=== PATIENT | male | born 1980 | race Caucasian/White ===

== ENCOUNTER 2021-04-16 16:11 | Emergency (ER) | payer OTHER, SELFPAY ==
[2021-04-16 16:15] VITALS: BP 133/71; PULSE 83; RESP 18; TEMP 37.2; O2SAT 97; BMI 24.3
[2021-04-16 16:45] LABS: Add Manual Diff / Slide Review NO; Basophils Absolute Auto 100 /uL (0-100); Basophils Percent Auto 0.6 % (0-2); Eosinophils Absolute Auto 100 /uL (0-450); Eosinophils Percent Auto 1.5 % (2-4); Hematocrit 45.8 % (41-53); Hemoglobin 15.8 g/dL (13.5-17.5); Lymphocytes Absolute Auto 1700 /uL (1100-4500); Lymphocytes Percent Auto 16.5 % (25-40); Mean Corpuscular HGB Conc 34.4 % (30-36); Mean Corpuscular Hemoglobin 30.9 PG (26-34); Mean Corpuscular Volume 89.8 fL (80-100); Monocytes Absolute Auto 400 /uL (0-900); Monocytes Percent Auto 3.9 % (3-14); Neutrophils Absolute Auto 7800 /uL (1500-7000); Neutrophils Percent Auto 77.5 % (50-75); Platelet Count 201 X10^3/uL (150-400); Red Cell Distribution Width 13.2 % (11.6-14.8); White Blood Cell Count 10.1 X10^3/uL (4.5-11.0)
[2021-04-16 16:58] LABS: Alanine Aminotransferase 20 IU/L (<50); Albumin 4.2 g/dL (3.5-5.0); Albumin Globulin Ratio 1.5 (1.0-2.8); Alkaline Phosphatase 41 U/L (38-126); Aspartate Aminotransferase 26 IU/L (17-59); BUN Creatinine Ratio 16.5 (6-22); Bilirubin Total 1.4 mg/dL (0.2-1.3); Blood Urea Nitrogen 15 mg/dL (9-20); Calcium 9.2 mg/dL (8.4-10.2); Carbon Dioxide 24 mmol/L (22-32); Chloride 105 mmol/L (98-107); Estimated Glomerular Filt Rate > 60.0 mL/min (>60); Globulin 2.8 g/dL (1.7-4.1); Glucose 132 mg/dL (70-100); HEMOLYSIS < 15 (0-50); Sodium 137 mmol/L (137-145)
[2021-04-16] MEDS: diphenhydrAMINE 50 MG/ML VIAL IV (17:00)
[2021-04-16] MEDS: methylPREDNISolone 125 MG/2 ML VIAL IV (17:00)
[2021-04-16] MEDS: FAMOTIDINE 20 MG/2 ML VIAL IV (17:00)
--- NOTE | 2021-04-16 18:35 | ED_ITS ---
HPI - Skin/Abscess/Foreign Bdy General Chief complaint: Skin/Abscess/Foreign Body Stated complaint: bee stings, multiple epi pen inj, rash Time Seen by Provider: 04/16/21 16:36 Source: patient Mode of arrival: Ambulatory Limitations: no limitations History of Present Illness HPI narrative: Patient is a 40-year-old male. Yesterday he started noticing some redness and swelling around his right elbow. He denies any specific trauma to the area. Who fevers. Did have some warmth could touch. He states that since that time the redness has actually worsened. He does not have any discomfort with bending his elbow. And discussed this yesterday he was stung multiple times by a bee. 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 Had an EpiPen with him and did administer 2 doses to himself. He was seen by the EMS crew locally and observed him for several hours but he was never transported to the emergency department. He denies any shortness of breath. He states that. Today he did notice a rash on his lower extremities. He did receive Solu-Medrol and Benadryl prior to my evaluation. Related Data Previous Rx's Medication Instructions Recorded clindamycin HCl 300 mg capsule 600 mg PO TID 14 Days #84 cap 04/16/21 epinephrine 0.3 mg/0.3 mL 0.3 mg IM Q5-15M PRN #2 ea 04/16/21 injection, auto-injector (EpiPen 2-Jose Daniel) prednisone 20 mg tablet 40 mg PO DAILY 5 Days #10 tab 04/16/21 Allergies Allergy/AdvReac Type Severity Reaction Status Date / Time bee venom protein (honey bee) Allergy Verified 04/16/21 18:52 Sulfa (Sulfonamide Allergy Verified 04/16/21 17:02 Antibiotics) Review of Systems Constitutional Constitutional: Denies fever(s) Eyes Eyes: Reports system reviewed and no additional complaints, except as documented ENT Ears, Nose, Mouth, and Throat: Denies sore throat, Denies throat swelling and Denies tongue swelling Cardiovascular Cardiovascular: Denies chest pain and Denies dyspnea Respiratory Respiratory: Denies cough and Denies dyspnea Gastrointestinal Gastrointestinal: Denies nausea and Denies vomiting Musculoskeletal Musculoskeletal: Reports system reviewed and no additional complaints, except as documented Integumentary/Breasts Skin/Breast: Reports erythema and Reports rash Neurologic Neurologic: Reports system reviewed and no additional complaints, except as documented Psychiatric Psychiatric: Reports system reviewed and no additional complaints, except as documented Hematologic/Lymphatic On Anticoagulants: No Allergic/Immunologic Allergic/Immunologic: Denies throat swelling and Denies tongue swelling Patient History Medical History Bee sting allergy Social History Smoking Status: Never smoker Smoking Status: Never smoker Substance Use Type: does not use Exam Initial Vital Signs Initial Vital Signs: Vital Signs Temperature 99.0 F 04/16/21 16:15 Pulse Rate 83 04/16/21 16:15 Respiratory Rate 18 04/16/21 16:15 Blood Pressure 133/71 04/16/21 16:15 Pulse Oximetry 97 04/16/21 16:15 Const General: cooperative, comfortable and well developed HENMT Head: normal to inspection and normocephalic Eyes General: appearance normal, both eyes and all related structures Neck Neck: normal visual inspection Resp Effort & Inspection: normal respiratory effort Auscultation: clear to auscultation bilaterally Cardio Rate: regular rate Rhythm: regular rhythm GI Inspection: normal to inspection Skin Other: He does have an area of redness located over his right elbow. It is warm to the touch. There is no fluctuance underneath. He also has diffuse urticaria. Neuro General: patient alert, patient awake, patient oriented x3 and moves all extremities Extrem General: normal to inspection and capillary refill normal Psych Appearance: grossly normal and well kempt Course Orders Ordered: Discontinued Medications Clindamycin HCl (Clindamycin 150 Mg Capsule) 300 mg PO NOW ONE Stop: 04/16/21 18:36 Clindamycin HCl (Clindamycin 150 Mg Capsule) 600 mg PO NOW ONE Stop: 04/16/21 18:39 Last Admin: 04/16/21 19:02 Dose: 600 mg Documented by: ARIANNA Diphenhydramine HCl (Diphenhydramine 50 Mg/Ml Vial) 50 mg IV NOW ONE Stop: 04/16/21 16:38 Last Admin: 04/16/21 17:00 Dose: 50 mg Documented by: ARIANNA Famotidine (Famotidine 20 Mg/2 Ml Vial) 20 mg IV NOW ONE Stop: 04/16/21 16:38 Last Admin: 04/16/21 17:00 Dose: 20 mg Documented by: JENNIFERR Methylprednisolone (Methylprednisolone 125 Mg/2 Ml Vial) 125 mg IV NOW ONE Stop: 04/16/21 16:38 Last Admin: 04/16/21 17:00 Dose: 125 mg Documented by: ARIANNA Vital Signs Vital signs: Vital Signs - 8 hr 04/16/21 16:15 Temperature 99.0 F Pulse Rate 83 Respiratory Rate 18 Blood Pressure 133/71 Pulse Oximetry 97 MDM - Skin/Abscess/Foreign Bdy Lab Data Attestation: I reviewed the patient's lab results. Result diagrams: 04/16/21 16:35 04/16/21 16:35 Labs: Lab Results 04/16/21 04/16/21 Range/Units 16:35 16:35 WBC 10.1 (4.5-11.0) X10^3/uL RBC 5.10 (4.5-5.9) X10^6/uL Hgb 15.8 (13.5-17.5) g/dL Hct 45.8 (41-53) % MCV 89.8 (80-100) fL MCH 30.9 (26-34) PG MCHC 34.4 (30-36) % RDW 13.2 (11.6-14.8) % Plt Count 201 (150-400) X10^3/uL Neut % (Auto) 77.5 H (50-75) % Lymph % (Auto) 16.5 L (25-40) % [place] % (Auto) 3.9 (3-14) % Eos % (Auto) 1.5 L (2-4) % Baso % (Auto) 0.6 (0-2) % Neut # (Auto) 7800 H (8304-0787) /uL Lymph # (Auto) 1700 (0494-4807) /uL [place] # (Auto) 400 (0-900) /uL Eos # (Auto) 100 (0-450) /uL Baso # (Auto) 100 (0-100) /uL Sodium 137 (137-145) mmol/L Potassium 4.0 (3.4-5.1) mmol/L Chloride 105 (98-107) mmol/L Carbon Dioxide 24 (22-32) mmol/L BUN 15 (9-20) mg/dL Creatinine 0.91 (0.66-1.25) mg/dL Estimated GFR > 60.0 (>60) mL/min BUN/Creatinine Ratio 16.5 (6-22) Glucose 132 H (70-100) mg/dL Calcium 9.2 (8.4-10.2) mg/dL Total Bilirubin 1.4 H (0.2-1.3) mg/dL AST 26 (17-59) IU/L ALT 20 (<50) IU/L Alkaline Phosphatase 41 (38-126) U/L Total Protein 7.0 (6.3-8.2) g/dL Albumin 4.2 (3.5-5.0) g/dL Globulin 2.8 (1.7-4.1) g/dL Albumin/Globulin Ratio 1.5 (1.0-2.8) MDM Narrative Medical decision making narrative: Patient does have 2 issues today which appear to be unrelated. He does have redness over his right elbow. I have low suspicion for fracture. Low suspicion for septic joint. It is warm to the touch. Did start prior to his 2nd issue which is bee stings yesterday. Feel that we should start the patient on antibiotics given the findings. No indication for orthopedic consultation. No indication for incision and drainage based on his presentation today although he was given strict return precautions and follow-up instructions for this. He is also having urticaria. Most likely from his bee sting yesterday. Low suspicion for anaphylaxis. Did receive steroids and Benadryl and famotidine prior to my evaluation at things do seem to be improving. Will place him on steroids for the next couple days. He was given strict return precautions and follow-up instructions for this. He expressed understanding and agreement. Discharge Plan Departure Patient Disposition: Home Clinical Impression: Allergic reaction to bee sting, Bursitis of elbow Instructions: Insect Bites and Stings, DI for Bursitis Activity Restrictions/Additional Instructions: Recommend that you start taking the antibiotics as directed. You can shower like normal. If the redness extends outside of the line that was drawn today like we discussed please return to the emergency department. Also start taking the steroids as directed. Return to the emergency department for any new or worsening symptoms. Prescriptions: New prednisone 20 mg tablet 40 mg PO DAILY 5 Days Qty: 10 RF: 0 clindamycin HCl 300 mg capsule 600 mg PO TID 14 Days Qty: 84 RF: 0 epinephrine [EpiPen 2-Jose Daniel] 0.3 mg/0.3 mL auto-injector 0.3 mg IM Q5-15M PRN (Reason: anaphylaxis) Qty: 2 RF: 0
--- NOTE | 2021-04-16 18:49 | PC.NURSE ---
pt has all over rash/hives due to bee stings. pt also has swelling to rt elbow that has doubled in size since yesterday.
[2021-04-16] MEDS: CLINDAMYCIN 150 MG CAPSULE 600 MG PO (19:02)
[2021-04-16 19:18] VITALS: BP 132/83; PULSE 79; O2SAT 99
== END 2021-04-16 19:19 | disposition home or self-care (01) ==
PROVIDERS: Emergency Medicine; Emergency Provider Emergency Medicine
DX: T63.441A Toxic effect of venom of bees, accidental (unintentional), initial encounter (principal); M70.31 Other bursitis of elbow, right elbow; R21 Rash and other nonspecific skin eruption
CPT/HCPCS: 36415; 80053; 85025; 96374; 96375; 99284; J1200; J2930